=== PATIENT | female | born 1985 | race Caucasian/White ===

== ENCOUNTER 2017-12-21 21:54 | Emergency (ER) | payer OTHER ==
[~2017-12-21] VITALS: Ht 167.6 cm; Wt 11.3 kg
[2017-12-22 03:53] VITALS: BP 160/88
== END 2017-12-22 03:53 | disposition home or self-care (01) ==
LOC: ER 21:54
DX: S06.0X0A Concussion without loss of consciousness, initial encounter (principal); S39.012A Strain of muscle, fascia and tendon of lower back, initial encounter; I10 Essential (primary) hypertension; G43.909 Migraine, unspecified, not intractable, without status migrainosus; Z90.49 Acquired absence of other specified parts of digestive tract; F17.200 Nicotine dependence, unspecified, uncomplicated; Z88.6 Allergy status to analgesic agent; W07.XXXA Fall from chair, initial encounter; Y93.89 Activity, other specified; Y92.018 Other place in single-family (private) house as the place of occurrence of the external cause
CPT/HCPCS: 81025; 99284

== ENCOUNTER 2018-10-08 08:24 | Emergency (ER) | payer OTHER ==
[~2018-10-08] VITALS: Ht 160 cm; Wt 113.0 kg
[2018-10-08 09:35] LABS: BASOPHILS % 0.8 % (0.0-2.0); EOSINOPHILS % 2.5 % (0.0-5.0); HEMATOCRIT. 39.3 % (36.0-48.0); HEMOGLOBIN. 12.9 g/dL (12.0-16.0); LYMPHOCYTES % 17.9 % (20.0-50.0); MEAN CORPUSCULAR HEMOGLOBIN 24.4 pg (28.0-32.0); MEAN CORPUSCULAR VOLUME 74.6 fL (81.0-99.0); MEAN PLATELET VOLUME 7.5 fl (7.4-10.4); MONOCYTES % 7.1 % (2.0-8.0); NEUTROPHILS % 71.7 % (40.0-76.0); PLATELET 304 x1000/uL (130-400); RED BLOOD CELL COUNT 5.27 mill/uL (4.2-5.4); RED CELL DISTRIBUTION WIDTH 15.9 % (11.6-14.6)
[2018-10-08 09:42] LABS: CHLORIDE 103 mEq/L (98-107)
[2018-10-08 09:55] LABS: B-HCG QUANTITATIVE < 1 mIU/mL (<3)
[2018-10-08 10:06] LABS: CLARITY URINE CLEAR (CLEAR); COLOR URINE YELLOW (YELLOW); KETONES URINE NEGATIVE (NEGATIVE); LEUKOCYTE ESTERASE URINE NEGATIVE (NEGATIVE); NITRITE URINE NEGATIVE (NEGATIVE); OCCULT BLOOD URINE TRACE (NEGATIVE); PH URINE 6.5 (4.5-8.0); PROTEIN URINE TRACE (NEGATIVE); SPECIFIC GRAVITY URINE 1.041 (1.005-1.030); UROBILINOGEN URINE 0.2 E.U./dL (0.2-1.0)
[2018-10-08 11:07] VITALS: BP 164/93
== END 2018-10-08 11:17 | disposition home or self-care (01) ==
LOC: ER 08:24
DX: R10.2 Pelvic and perineal pain (principal); I10 Essential (primary) hypertension; G43.909 Migraine, unspecified, not intractable, without status migrainosus; Z88.8 Allergy status to other drugs, medicaments and biological substances; Z97.5 Presence of (intrauterine) contraceptive device; Z90.49 Acquired absence of other specified parts of digestive tract; Z98.84 Bariatric surgery status
CPT/HCPCS: 36415; 76830; 76856; 81003; 81025; 84702; 86850; 86900; 99284

== ENCOUNTER 2018-12-25 20:33 | Emergency (ER) | payer OTHER ==
[~2018-12-25] VITALS: Ht 160 cm; Wt 111.0 kg
[2018-12-25] MEDS ORDERED: SODIUM CHLORIDE 0.9% 1,000 ML IV ONE (21:23)
[2018-12-25] MEDS ORDERED: KETOROLAC 30MG/ML VIAL IV STA (21:23)
[2018-12-25] MEDS ORDERED: DIPHENHYDRAMINE 50MG/ML VIAL IV ONE (21:30)
[2018-12-25] MEDS ORDERED: METOCLOPRAMIDE HCL 10MG/2ML VIAL IV ONE (21:30)
[2018-12-25] MEDS ORDERED: ASPIRIN 81MG TABLET PO ONE (21:30)
[2018-12-25 21:51] LABS: BASOPHILS % 0.6 % (0.0-2.0); HEMATOCRIT. 39.2 % (36.0-48.0); HEMOGLOBIN. 12.8 g/dL (12.0-16.0); LYMPHOCYTES % 23.9 % (20.0-50.0); MEAN CORPUSCULAR HEMOGLOBIN 24.2 pg (28.0-32.0); MEAN CORPUSCULAR VOLUME 73.7 fL (81.0-99.0); NEUTROPHILS % 65.5 % (40.0-76.0); PLATELET 294 x1000/uL (130-400); RED BLOOD CELL COUNT 5.32 mill/uL (4.2-5.4); RED CELL DISTRIBUTION WIDTH 16.3 % (11.6-14.6)
[2018-12-25 22:01] LABS: CHLORIDE 105 mEq/L (98-107)
[2018-12-26 00:13] VITALS: BP 148/92
== END 2018-12-26 00:14 | disposition home or self-care (01) ==
LOC: ER 20:33
DX: G43.909 Migraine, unspecified, not intractable, without status migrainosus (principal); I10 Essential (primary) hypertension; F41.9 Anxiety disorder, unspecified; F32.9 Major depressive disorder, single episode, unspecified; Z88.8 Allergy status to other drugs, medicaments and biological substances; Z90.49 Acquired absence of other specified parts of digestive tract; Z98.84 Bariatric surgery status; Z87.891 Personal history of nicotine dependence
CPT/HCPCS: 36415; 71045; 80053; 84484; 85025; 93005; 96374; 96375; 99284; J1200; J1885; J2765; J7030; Z7610

== ENCOUNTER 2019-07-23 11:49 | Inpatient (IN) | payer MEDICAID, OTHER ==
[~2019-07-23] VITALS: Ht 160 cm; Wt 103.4 kg
[2019-07-23] MEDS ORDERED: SODIUM CHLORIDE 0.9% 1,000 ML IV ONE (12:57)
[2019-07-23] MEDS ORDERED: BUTALBITAL/ACETAMINOPHEN/CAFFEINE 50/325/40MG TABLET PO ONE (13:00)
[2019-07-23] MEDS ORDERED: AMLODIPINE 5MG TABLET PO ONE ×2 (13:00→14:15)
[2019-07-23] MEDS ORDERED: LORAZEPAM 1MG TABLET PO ONE (13:00)
[2019-07-23 13:27] LABS: CLARITY URINE CLEAR (CLEAR); COLOR URINE YELLOW (YELLOW); KETONES URINE NEGATIVE (NEGATIVE); LEUKOCYTE ESTERASE URINE NEGATIVE (NEGATIVE); NITRITE URINE NEGATIVE (NEGATIVE); OCCULT BLOOD URINE NEGATIVE (NEGATIVE); PROTEIN URINE 1+ (NEGATIVE); SPECIFIC GRAVITY URINE 1.038 (1.005-1.030); UROBILINOGEN URINE 0.2 E.U./dL (0.2-1.0)
[2019-07-23 13:30] LABS: BASOPHILS % 0.8 % (0.0-2.0); EOSINOPHILS % 2.4 % (0.0-5.0); HEMATOCRIT. 39.8 % (36.0-48.0); HEMOGLOBIN. 13.5 g/dL (12.0-16.0); LYMPHOCYTES % 20.5 % (20.0-50.0); MEAN CORPUSCULAR HEMOGLOBIN 26.3 pg (28.0-32.0); MEAN CORPUSCULAR VOLUME 77.4 fL (81.0-99.0); MEAN PLATELET VOLUME 7.6 fl (7.4-10.4); MONOCYTES % 7.5 % (2.0-8.0); NEUTROPHILS % 68.8 % (40.0-76.0); PLATELET 271 x1000/uL (130-400); RED BLOOD CELL COUNT 5.15 mill/uL (4.2-5.4); RED CELL DISTRIBUTION WIDTH 15.7 % (11.6-14.6)
[2019-07-23 13:35] LABS: CHLORIDE 107 mEq/L (98-107)
[2019-07-23 13:41] LABS: ETHANOL BLOOD < 10 mg/dL
[2019-07-23 13:47] LABS: CREATINE KINASE 57 IU/L (26-192)
[2019-07-23 13:50] LABS: *AMPHETAMINES SCREEN URINE NEGATIVE (NEGATIVE); *BENZODIAZEPINES SCREEN URINE NEGATIVE (NEGATIVE); *COCAINE SCREEN URINE NEGATIVE (NEGATIVE); METHADONE URINE SCREEN NEGATIVE (NEGATIVE); OPIATES URINE SCREEN NEGATIVE (NEGATIVE)
[2019-07-23 13:51] LABS: PHENCYCLIDINE URINE SCREEN NEGATIVE (NEGATIVE)
[2019-07-23 13:54] LABS: *BARBITURATES SCREEN URINE PRESUMTIVE POSITIVE (NEGATIVE); CANNABINOID URINE SCREEN PRESUMTIVE POSITIVE (NEGATIVE)
[2019-07-23] MEDS ORDERED: LOSARTAN POTASSIUM 100 MG TABLET PO ONE (15:00)
[2019-07-23] MEDS ORDERED: HYDRALAZINE 20MG/ML VIAL IV ONE (16:45)
[2019-07-23] MEDS ORDERED: IOHEXOL-350 100 ML BOTTLE ONE (19:26)
[2019-07-23] MEDS ORDERED: MAGNESIUM/ALUMINUM HYDROXIDE/SIMETHICONE 30ML UDC PO PRN (21:00)
[2019-07-23] MEDS ORDERED: DOCUSATE SODIUM 100MG CAPSULE PO PRN (21:00)
[2019-07-23] MEDS ORDERED: IPRATROPIUM/ALBUTEROL 0.5-3(2.5)MG/3ML NEB NEB PRN (21:00)
[2019-07-23] MEDS ORDERED: ACETAMINOPHEN 325MG TABLET PO PRN (21:00)
[2019-07-23] MEDS ORDERED: LORAZEPAM 0.5MG TABLET PO PRN (21:00)
[2019-07-23] MEDS: CLONIDINE 0.1MG TABLET PO PRN (21:39)
[2019-07-23] MEDS: HYDROCODONE/ACETAMINOPHEN 5/325MG TABLET PO PRN (21:39)
[2019-07-23 22:52] LABS: CHLORIDE 107 mEq/L (98-107)
[2019-07-23 23:01] LABS: CREATINE KINASE 54 IU/L (26-192); CREATINE KINASE MB FRACTION < 1.0 ng/mL (0.5-3.6)
[2019-07-23 23:44] VITALS: BP 148/88
[2019-07-23] MEDS: METOPROLOL TARTRATE 25MG TABLET PO SCH (23:59)
[2019-07-24] VITALS (12 sets, daily range): BP systolic 121–182; BP diastolic 50–101
[2019-07-24] MEDS: HYDROCODONE/ACETAMINOPHEN 5/325MG TABLET PO PRN ×3 (02:37→16:25)
[2019-07-24 06:50] LABS: BASOPHILS % 0.5 % (0.0-2.0); EOSINOPHILS % 1.1 % (0.0-5.0); HEMATOCRIT. 38.3 % (36.0-48.0); HEMOGLOBIN. 13.2 g/dL (12.0-16.0); LYMPHOCYTES % 13.8 % (20.0-50.0); MEAN CORPUSCULAR HEMOGLOBIN 26.8 pg (28.0-32.0); MEAN CORPUSCULAR VOLUME 77.7 fL (81.0-99.0); MONOCYTES % 6.6 % (2.0-8.0); PLATELET 280 x1000/uL (130-400); RED BLOOD CELL COUNT 4.93 mill/uL (4.2-5.4); RED CELL DISTRIBUTION WIDTH 15.6 % (11.6-14.6)
[2019-07-24] MEDS ORDERED: ONDA4TAB11 PO (07:41)
[2019-07-24] MEDS ORDERED: BUTA-251 MT (07:41)
[2019-07-24] MEDS ORDERED: DOXY25TA61 PO (07:41)
[2019-07-24] MEDS ORDERED: CYCL10TA7 PO (07:41)
[2019-07-24] MEDS ORDERED: MAGN400T7 MT (07:41)
[2019-07-24] MEDS: ONDANSETRON HCL 4MG/2ML INJ IV PRN (08:05)
[2019-07-24] MEDS: METOPROLOL TARTRATE 25MG TABLET PO SCH (08:06)
[2019-07-24 08:10] LABS: LDL CHOLESTEROL 167 mg/dL (5-100)
[2019-07-24 08:12] LABS: CREATINE KINASE 45 IU/L (26-192)
[2019-07-24 08:13] LABS: CREATINE KINASE MB FRACTION < 1.0 ng/mL (0.5-3.6); HDL CHOLESTEROL 46 mg/dL (40-59)
[2019-07-24] MEDS ORDERED: DILTIAZEM HCL 5MG/ML 5ML VIAL IV PRN (10:30)
[2019-07-24] MEDS ORDERED: PNEUMOCOCCAL 23-VAL P-SAC VAC 0.5 ML IM ONE (12:00)
[2019-07-24] MEDS ORDERED: CYCLOBENZAPRINE 10MG TABLET PO PRN (12:00)
[2019-07-24] MEDS: CLONIDINE 0.1MG TABLET PO PRN (18:07)
[2019-07-24] MEDS ORDERED: BUTALBITAL/ACETAMINOPHEN/CAFFEINE 50/325/40MG TABLET PO PRN (19:00)
[2019-07-24] MEDS: METOPROLOL TARTRATE 50MG TABLET PO SCH (20:11)
[2019-07-24] MEDS ORDERED: ATORVASTATIN CALCIUM 20MG TABLET PO SCH (21:00)
[2019-07-24] MEDS ORDERED: ZOLPIDEM TARTRATE 5MG TABLET PO PRN (21:00)
[2019-07-25] VITALS (8 sets, daily range): BP systolic 130–158; BP diastolic 85–99
[2019-07-25] MEDS: ONDANSETRON HCL 4MG/2ML INJ IV PRN (08:13)
[2019-07-25] MEDS: METOPROLOL TARTRATE 50MG TABLET PO SCH (08:48)
[2019-07-25] MEDS ORDERED: LOSARTAN POTASSIUM 50 MG TABLET PO SCH (09:00)
[2019-07-25] MEDS ORDERED: PANTOPRAZOLE SODIUM 40 MG/VIAL IV SCH (09:00)
[2019-07-25] MEDS ORDERED: PANT40TA4 MT (11:37)
[2019-07-25] MEDS ORDERED: METO100T16 PO (11:37)
[2019-07-25] MEDS ORDERED: LOSA50TA41 MT (11:37)
[2019-07-25] MEDS ORDERED: ATOR20TA PO (11:37)
[2019-07-25] MEDS ORDERED: METOPROLOL TARTRATE 100MG TABLET PO SCH (21:00)
== END 2019-07-25 14:00 | disposition home or self-care (01) | DRG 199 ==
LOC: ER 11:49 → 3WST 19:38 → ENRESERV 20:02 → CANRESERV 20:02 → EDBEDREQTM 22:08 → EDBEDREQSVC 22:08 → ENRESERV 22:21 → 3WST 07-24 08:08
PROVIDERS: ADMIT Internal Medicine; ATTEND Internal Medicine
DX: I16.1 Hypertensive emergency (principal); E66.01 Morbid (severe) obesity due to excess calories; E78.5 Hyperlipidemia, unspecified; F12.90 Cannabis use, unspecified, uncomplicated; F32.9 Major depressive disorder, single episode, unspecified; F41.9 Anxiety disorder, unspecified; G43.909 Migraine, unspecified, not intractable, without status migrainosus; I10 Essential (primary) hypertension; G44.209 Tension-type headache, unspecified, not intractable; R00.2 Palpitations; K21.9 Gastro-esophageal reflux disease without esophagitis; I36.1 Nonrheumatic tricuspid (valve) insufficiency; Z82.49 Family history of ischemic heart disease and other diseases of the circulatory system; Z87.891 Personal history of nicotine dependence; Z90.49 Acquired absence of other specified parts of digestive tract; Z91.19 Patient's noncompliance with other medical treatment and regimen; Z98.84 Bariatric surgery status; Z68.41 Body mass index [BMI] 40.0-44.9, adult; Z88.8 Allergy status to other drugs, medicaments and biological substances; Z79.899 Other long term (current) drug therapy
CPT/HCPCS: 36415; 71045; 71275; 80048; 80053; 80061; 80305; 80320; 81003; 82550; 82553; 83036; 83735; 83880; 84443; 84484; 85025; 85379; 87077; 90732; 93005; 93306; 93970; 97110; 97162; 99285; C9113; J0360; J2405; J7030; Q9967; G0480

== ENCOUNTER 2020-10-06 14:33 | Emergency (ER) | payer OTHER ==
[~2020-10-06] VITALS: Ht 160 cm; Wt 100.0 kg
[~2020-10-06 14:33] MED LIST: ATOR20TA PO; BUTA-251 MT; CYCL10TA7 PO; DOXY25TA61 PO; LOSA50TA41 MT; MAGN400T7 MT; METO100T16 PO; ONDA4TAB11 PO; PANT40TA51 MT
[2020-10-06] MEDS ORDERED: IBUPROFEN 600MG TABLET PO STA (17:07)
[2020-10-06] MEDS ORDERED: AMLODIPINE 5MG TABLET PO ONE (17:30)
[2020-10-06 17:56] LABS: CLARITY URINE CLOUDY (CLEAR); COLOR URINE YELLOW (YELLOW); KETONES URINE TRACE (NEGATIVE); LEUKOCYTE ESTERASE URINE NEGATIVE (NEGATIVE); NITRITE URINE NEGATIVE (NEGATIVE); OCCULT BLOOD URINE NEGATIVE (NEGATIVE); PROTEIN URINE NEGATIVE (NEGATIVE); SPECIFIC GRAVITY URINE 1.046 (1.005-1.030); UROBILINOGEN URINE 0.2 E.U./dL (0.2-1.0)
[2020-10-06 18:28] VITALS: BP 155/96
[2020-10-06] MEDS ORDERED: NAPR500T7 MT (18:31)
[2020-10-06] MEDS ORDERED: CYCL25PO21 MT (18:31)
[2020-10-06] MEDS ORDERED: NITR100C MT (18:31)
[2020-10-11 19:06] LABS: INFLUENZA A AB CF 1:32 (Neg:<1:8); INFLUENZA B AB CF 1:16 (Neg:<1:8)
== END 2020-10-06 19:24 | disposition home or self-care (01) ==
LOC: ER 14:33
DX: U07.1 COVID-19 (principal); I10 Essential (primary) hypertension; Z88.5 Allergy status to narcotic agent; Z88.9 Allergy status to unspecified drugs, medicaments and biological substances; Z88.8 Allergy status to other drugs, medicaments and biological substances; Z79.899 Other long term (current) drug therapy; Z90.49 Acquired absence of other specified parts of digestive tract; Z98.890 Other specified postprocedural states
CPT/HCPCS: 81003; 81025; 86710; 87804; 99283; C9803; U0003; U0005

== ENCOUNTER 2022-07-19 18:54 | Emergency (ER) | payer OTHER ==
[~2022-07-19] VITALS: Ht 160 cm; Wt 104.0 kg
[~2022-07-19 18:54] MED LIST changes: +CYCL10TA21 PO; -CYCL10TA7 PO; +CYCL25PO15 MT; +NAPR500T7 MT; +NITR100C MT
[2022-07-19 19:23] LABS: EOSINOPHILS % 6.5 % (0.0-5.0); HEMATOCRIT. 40.1 % (36.0-48.0); HEMOGLOBIN. 13.8 g/dL (12.0-16.0); MEAN CORPUSCULAR HEMOGLOBIN 29.8 pg (28.0-32.0); MEAN CORPUSCULAR VOLUME 86.5 fL (81.0-99.0); MONOCYTES % 7.3 % (2.0-8.0); NEUTROPHILS % 54.2 % (40.0-76.0); PLATELET 281 x1000/uL (130-400); RED BLOOD CELL COUNT 4.63 mill/uL (4.2-5.4); RED CELL DISTRIBUTION WIDTH 14.5 % (11.6-14.6)
[2022-07-19 19:33] LABS: CHLORIDE 104 mEq/L (98-107)
[2022-07-19 22:22] LABS: CLARITY URINE CLEAR (CLEAR); COLOR URINE YELLOW (YELLOW); KETONES URINE TRACE (NEGATIVE); LEUKOCYTE ESTERASE URINE NEGATIVE (NEGATIVE); NITRITE URINE NEGATIVE (NEGATIVE); OCCULT BLOOD URINE NEGATIVE (NEGATIVE); PH URINE 5.5 (4.5-8.0); PROTEIN URINE TRACE (NEGATIVE); SPECIFIC GRAVITY URINE 1.035 (1.005-1.030)
[2022-07-20] MEDS ORDERED: HYDR-4001 MT (02:43)
[2022-07-20 03:25] VITALS: BP 115/87
== END 2022-07-20 03:28 | disposition home or self-care (01) ==
LOC: ER 18:54
DX: R10.9 Unspecified abdominal pain (principal); M54.50 Low back pain, unspecified; R30.0 Dysuria; F41.9 Anxiety disorder, unspecified; F32.9 Major depressive disorder, single episode, unspecified; I10 Essential (primary) hypertension; G43.909 Migraine, unspecified, not intractable, without status migrainosus; Z79.899 Other long term (current) drug therapy
CPT/HCPCS: 36415; 74176; 80053; 81003; 81025; 85025; 99284

== ENCOUNTER 2022-11-21 08:17 | Emergency (ER) | payer OTHER ==
[~2022-11-21] VITALS: Ht 167.6 cm; Wt 100.0 kg
[~2022-11-21 08:17] MED LIST changes: +HYDR-4001 MT
[2022-11-21 08:22] VITALS: O2SAT 99
[2022-11-21 09:03] LABS: BASOPHILS % 0.7 % (0.0-2.0); EOSINOPHILS % 3.3 % (0.0-5.0); HEMATOCRIT. 37.4 % (36.0-48.0); HEMOGLOBIN. 12.8 g/dL (12.0-16.0); LYMPHOCYTES % 20.4 % (20.0-50.0); MEAN CORPUSCULAR HEMOGLOBIN 29.6 pg (28.0-32.0); MEAN CORPUSCULAR HGB CONC 34.4 g/dL (31.0-37.0); MEAN PLATELET VOLUME 7.6 fl (7.4-10.4); MONOCYTES % 8.5 % (2.0-8.0); NEUTROPHILS % 67.1 % (40.0-76.0); PLATELET 298 x1000/uL (130-400); RED BLOOD CELL COUNT 4.35 mill/uL (4.2-5.4); RED CELL DISTRIBUTION WIDTH 13.8 % (11.6-14.6); WHITE BLOOD COUNT 9.7 x1000/uL (4.5-11.0)
[2022-11-21 09:15] LABS: CHLORIDE 105 mEq/L (98-107); INDEX HEMOLYSI 1 (1-3); INDEX ICTERIC 1 (1-4); INDEX LIPEMIC 1 (1-3); POTASSIUM 3.9 mEq/L (3.5-5.1); SODIUM 136 mEq/L (136-145)
[2022-11-21 09:23] LABS: ALANINE AMINOTRANSFERASE 46 IU/L (13-61); ALBUMIN 3.6 g/dL (3.4-5.0); ASPARTATE AMINOTRANSFERASE 21 IU/L (15-37); BILIRUBIN TOTAL 0.6 mg/dL (0.1-1.0); CALCIUM 8.7 mg/dL (8.5-10.1); CARBON DIOXIDE 23 mEq/L (21-32); CREATININE 0.6 mg/dL (0.6-1.3); GLUCOSE 385 mg/dL (70-105); PROTEIN TOTAL 7.3 g/dL (6.0-8.3); UREA NITROGEN BLOOD 14 mg/dL (7-21)
[2022-11-21 09:32] LABS: TROPONIN I HIGH SENSITIVITY < 4 ng/L (<54)
[2022-11-21 10:05] LABS: CLARITY URINE CLEAR (CLEAR); COLOR URINE YELLOW (YELLOW); GLUCOSE URINE 3+ (NEGATIVE); KETONES URINE NEGATIVE (NEGATIVE); LEUKOCYTE ESTERASE URINE NEGATIVE (NEGATIVE); NITRITE URINE NEGATIVE (NEGATIVE); OCCULT BLOOD URINE NEGATIVE (NEGATIVE); PH URINE 5.5 (4.5-8.0); PROTEIN URINE NEGATIVE (NEGATIVE); SPECIFIC GRAVITY URINE 1.038 (1.005-1.030); UROBILINOGEN URINE 0.2 E.U./dL (0.2-1.0)
[2022-11-21 10:22] LABS: HCG SCREEN NEGATIVE
[2022-11-21 10:27] LABS: BACTERIA URINE FEW; RBC URINE 0-2 /hpf (0-2); SQUAMOUS EPITHELIAL CELL URINE 1+ /lpf (RARE/1+); WBC URINE 0-2 /hpf (0-2); YEAST URINE NONE SEEN
[2022-11-21 12:54] VITALS: BP 132/84; PULSE 84; RESP 19; TEMP 98
== END 2022-11-21 12:56 | disposition home or self-care (01) ==
LOC: ER 08:31
DX: R55 Syncope and collapse (principal); I10 Essential (primary) hypertension; Z88.8 Allergy status to other drugs, medicaments and biological substances; Z88.9 Allergy status to unspecified drugs, medicaments and biological substances; Z91.018 Allergy to other foods; Z91.030 Bee allergy status; Z79.899 Other long term (current) drug therapy; Z98.890 Other specified postprocedural states; Z90.49 Acquired absence of other specified parts of digestive tract; Z86.59 Personal history of other mental and behavioral disorders
CPT/HCPCS: 36415; 71045; 80053; 81003; 81025; 84484; 84703; 85025; 93005; 99285

== ENCOUNTER 2023-08-04 18:40 | Emergency (ER) | payer OTHER ==
[~2023-08-04] VITALS: Ht 160 cm; Wt 98.9 kg
[2023-08-04 18:54] VITALS: TEMP 98; O2SAT 98
[2023-08-04 19:28] LABS: CLARITY URINE CLEAR (CLEAR); COLOR URINE YELLOW (YELLOW); GLUCOSE URINE 3+ (NEGATIVE); KETONES URINE TRACE (NEGATIVE); LEUKOCYTE ESTERASE URINE NEGATIVE (NEGATIVE); NITRITE URINE NEGATIVE (NEGATIVE); OCCULT BLOOD URINE 2+ (NEGATIVE); PH URINE 5.5 (4.5-8.0); PROTEIN URINE TRACE (NEGATIVE); SPECIFIC GRAVITY URINE 1.033 (1.005-1.030); UROBILINOGEN URINE 0.2 E.U./dL (0.2-1.0)
[2023-08-04 19:53] LABS: BACTERIA URINE 2+; SQUAMOUS EPITHELIAL CELL URINE 1+ /lpf (RARE/1+)
[2023-08-04 19:54] LABS: WBC URINE 0-2 /hpf (0-2)
[2023-08-04 20:27] LABS: HEMATOCRIT. 45.1 % (36.0-48.0); MEAN CORPUSCULAR HEMOGLOBIN 29.2 pg (28.0-32.0); MEAN CORPUSCULAR HGB CONC 33.2 g/dL (31.0-37.0); MEAN CORPUSCULAR VOLUME 87.9 fL (81.0-99.0); MEAN PLATELET VOLUME 7.8 fl (7.4-10.4); PLATELET 364 x1000/uL (130-400); RED BLOOD CELL COUNT 5.13 mill/uL (4.2-5.4); RED CELL DISTRIBUTION WIDTH 13.7 % (11.6-14.6); WHITE BLOOD COUNT 13.6 x1000/uL (4.5-11.0)
[2023-08-04 20:31] LABS: DIFFERENTIAL COMMENT 1
[2023-08-04 20:44] LABS: CHLORIDE 105 mEq/L (98-107); POTASSIUM 4.5 mEq/L (3.5-5.1); SODIUM 137 mEq/L (136-145)
[2023-08-04 20:45] LABS: CALCIUM 10.4 mg/dL (8.7-10.4); CARBON DIOXIDE 26 mEq/L (21-32)
[2023-08-04 20:50] LABS: CREATININE 0.8 mg/dL (0.6-1.0); GLUCOSE 222 mg/dL (70-105); UREA NITROGEN BLOOD 8 mg/dL (9-23)
[2023-08-04 20:56] LABS: PLATELET ESTIMATE NORMAL
[2023-08-04 21:49] LABS: INR 0.9; PROTHROMBIN TIME 9.9 sec (9.6-11.0)
[2023-08-04 21:51] LABS: HCG SCREEN NEGATIVE
[2023-08-04] MEDS: KETOROLAC 15MG/ML VIAL IM ONE (22:35)
[2023-08-04] MEDS: METOCLOPRAMIDE HCL 10MG TABLET PO ONE (22:35)
[2023-08-04 23:28] LABS: ALANINE AMINOTRANSFERASE 39 IU/L (10-49); ALBUMIN 4.8 g/dL (3.2-4.8); ASPARTATE AMINOTRANSFERASE 32 IU/L (<34); BILIRUBIN DIRECT 0.2 mg/dL (<=3.0); BILIRUBIN TOTAL 0.7 mg/dL (0.1-1.0); PROTEIN TOTAL 7.5 g/dL (6.0-8.3)
[2023-08-04 23:51] LABS: TROPONIN I HIGH SENSITIVITY < 4 ng/L (3.0-34)
[2023-08-05] MEDS ORDERED: LIDO700A15 TP (00:22)
[2023-08-05] MEDS ORDERED: NAPR-1176 MT (00:22)
[2023-08-05 00:25] VITALS: BP 137/66; PULSE 63; RESP 16
== END 2023-08-05 00:30 | disposition home or self-care (01) ==
LOC: ER 18:40
DX: S06.0X0A Concussion without loss of consciousness, initial encounter (principal); R51.9 Headache, unspecified; M54.50 Low back pain, unspecified; F41.9 Anxiety disorder, unspecified; I10 Essential (primary) hypertension; F32.9 Major depressive disorder, single episode, unspecified; Z79.899 Other long term (current) drug therapy; V49.49XA Driver injured in collision with other motor vehicles in traffic accident, initial encounter; Y93.89 Activity, other specified; Y92.89 Other specified places as the place of occurrence of the external cause; Y99.8 Other external cause status
CPT/HCPCS: 80076; 80048; 81003; 81025; 84703; 83690; 85025; 85610; 84484; 36415; 72100; 70450; 96372; 99285; J8597; J1885; Z7610